=== PATIENT | female | born 1985 | race Caucasian/White ===

== ENCOUNTER → 2020-09-11 11:11 | Outpatient (CLI) | payer OTHER, SELFPAY ==
--- NOTE | 2020-09-11 11:15 | BI_ITS ---
MAMMOGRAPHY - BILATERAL SCREENING REASON FOR EXAM: Female, 35 years old. Routine annual screening examination. PERTINENT HISTORY: Mother with breast cancer. TECHNIQUE: Digital bilateral breast janie (3D mammographic acquisition) in the CC and MLO projections. 2-D mediolateral oblique (MLO) and craniocaudad (CC) views of both breasts were obtained. CAD: Full Field Digital Mammography with Computer Added Detection was performed. COMPARISON: None. Baseline examination. FINDINGS: Breast Composition: The breasts are heterogeneously dense, which may obscure small masses. There are no dominant masses or suspicious calcifications. No other significant abnormalities are identified. BI/SCRN MAMM (CAD)W/JANIE BILAT IMPRESSION: Negative screening mammogram. Yearly followup mammogram recommended. (A) ASSESSMENT CATEGORY: BIRADS Category 1: Negative. A letter regarding these results will be sent to the patient by the facility within 30 days. Approximately 10% of breast cancers are not detected by mammography. A normal mammogram should not delay biopsy of a clinically suspicious abnormality. [id number] Electronically Signed: Juan Jo MD at 12:01 EDT , Service support ,
== END ==
PROVIDERS: PCP Internal Medicine; Referring Provider Internal Medicine; Visit Provider Internal Medicine
DX: Z12.31 Encounter for screening mammogram for malignant neoplasm of breast (principal)
CPT/HCPCS: 77063; 77067

== ENCOUNTER → 2022-12-02 | Outpatient (CLI) | payer OTHER, SELFPAY ==
--- NOTE | 2022-12-02 08:19 | BI_ITS ---
MAMMOGRAPHY - BILATERAL SCREENING REASON FOR EXAM: Female, 37 years old. Routine annual screening examination. PERTINENT HISTORY: Mother with breast cancer. TECHNIQUE: Digital bilateral breast janie (3D mammographic acquisition) in the CC and MLO projections. 2-D mediolateral oblique (MLO) and craniocaudad (CC) views of both breasts were obtained. CAD: Full Field Digital Mammography with Computer Added Detection was performed. COMPARISON: Mammogram from 09/11/2020. FINDINGS: Breast Composition: The breasts are heterogeneously dense, which may obscure small masses. There is an asymmetry in the left central slightly inner breast, posterior depth, approximately 9 cm posterior to the nipple that was not seen on prior examination from 2020. Further assessment with spot compression views and ultrasound if needed is recommended. No other significant abnormalities are identified. BI/SCRN MAMM (CAD)W/JANIE BILAT IMPRESSION: Further imaging evaluation recommended, as described above. (E) Recall Side: Left Breast ASSESSMENT CATEGORY: BIRADS Category 0: Incomplete. Need additional imaging evaluation. A letter regarding these results will be sent to the patient by the facility within 30 days. Approximately 10% of breast cancers are not detected by mammography. A normal mammogram should not delay biopsy of a clinically suspicious abnormality. Electronically Signed: Gregory Alexander DO at 14:59 EDT ,
== END | disposition home or self-care (01) ==
LOC: OPBI 08:17
PROVIDERS: PCP Internal Medicine; Referring Provider Internal Medicine; Visit Provider Internal Medicine
DX: Z12.31 Encounter for screening mammogram for malignant neoplasm of breast (principal); Z80.3 Family history of malignant neoplasm of breast
CPT/HCPCS: 77063; 77067

== ENCOUNTER → 2022-12-06 | Outpatient (CLI) | payer OTHER, SELFPAY ==
--- NOTE | 2022-12-06 09:18 | BI_ITS ---
EXAM: Diagnostic unilateral left breast mammogram and diagnostic unilateral left breast ultrasound REASON FOR EXAM: Female, 37 years old. Call back for abnormal screening mammogram finding. PERTINENT HISTORY: Non-contributory. TECHNIQUE: Digital left breast mari (3D mammographic acquisition) in the CC and MLO projections. 2-D mediolateral oblique (MLO) and craniocaudad (CC) views of the left breast was obtained. CAD: Full Field Digital Mammography with Computer Added Detection was performed. Real-time sutton scale and color sonographic images were obtained in the left lower inner breast and left upper breast from the 6:00 to 3:00 positions.. COMPARISON: Screening mammogram from 12/02/2022, 09/11/2022. FINDINGS: Mammogram findings: Breast Composition: Portions of the breasts are heterogeneously dense, which may obscure small masses. Spot compression views demonstrate normal fibroglandular tissue, however it is difficult to entirely compress the posterior depth. Ultrasound was obtained of the left breast for further assessment. Ultrasound findings: No suspicious masses or abnormal fluid collections. BI/DIAG MAMM W/CAD, UNILAT IMPRESSION: Normal fibroglandular tissue with no findings to suggest malignancy on mammogram. No suspicious masses or abnormal fluid collections on ultrasound. ASSESSMENT CATEGORY: BIRADS Category 1: Negative. A letter regarding these results will be sent to the patient by the facility within 30 days. Recommendation: Return to annual screening mammogram. If clinical concerns for enlarging mass or nipple discharge on physical exam, repeat diagnostic ultrasound and mammogram is recommended. Approximately 10% of breast cancers are not detected by mammography. A normal mammogram should not delay biopsy of a clinically suspicious abnormality. Electronically Signed: Gregory Alexander DO at 13:25 EDT ,
--- NOTE | 2022-12-06 09:21 | US_ITS ---
EXAM: Diagnostic unilateral left breast mammogram and diagnostic unilateral left breast ultrasound REASON FOR EXAM: Female, 37 years old. Call back for abnormal screening mammogram finding. PERTINENT HISTORY: Non-contributory. TECHNIQUE: Digital left breast mari (3D mammographic acquisition) in the CC and MLO projections. 2-D mediolateral oblique (MLO) and craniocaudad (CC) views of the left breast was obtained. CAD: Full Field Digital Mammography with Computer Added Detection was performed. Real-time sutton scale and color sonographic images were obtained in the left lower inner breast and left upper breast from the 6:00 to 3:00 positions.. COMPARISON: Screening mammogram from 12/02/2022, 09/11/2022. FINDINGS: Mammogram findings: Breast Composition: Portions of the breasts are heterogeneously dense, which may obscure small masses. Spot compression views demonstrate normal fibroglandular tissue, however it is difficult to entirely compress the posterior depth. Ultrasound was obtained of the left breast for further assessment. Ultrasound findings: No suspicious masses or abnormal fluid collections. US/Breast Limited Unilateral IMPRESSION: Normal fibroglandular tissue with no findings to suggest malignancy on mammogram. No suspicious masses or abnormal fluid collections on ultrasound. ASSESSMENT CATEGORY: BIRADS Category 1: Negative. A letter regarding these results will be sent to the patient by the facility within 30 days. Recommendation: Return to annual screening mammogram. If clinical concerns for enlarging mass or nipple discharge on physical exam, repeat diagnostic ultrasound and mammogram is recommended. Approximately 10% of breast cancers are not detected by mammography. A normal mammogram should not delay biopsy of a clinically suspicious abnormality. Electronically Signed: Gregory Alexander DO at 13:25 EDT ,
== END | disposition home or self-care (01) ==
PROVIDERS: PCP Internal Medicine; Referring Provider Internal Medicine; Visit Provider Internal Medicine
DX: R92.8 Other abnormal and inconclusive findings on diagnostic imaging of breast (principal)
CPT/HCPCS: 76642; 77065